=== PATIENT | male | born 1990 | race Caucasian/White ===

== ENCOUNTER 2024-08-07 21:13 | Emergency (ER) | payer BC, SELFPAY ==
[2024-08-07 21:20] VITALS: BP 160/90
[2024-08-07 21:59] LABS: % Eosinophils 2.6 % (0-6); % Immature Granulocytes 0.2 % (0-0.5); % Lymphocytes 40.4 % (20.5-51.1); % Monocytes 9.3 % (1.7-9.3); % Neutrophils 46.5 % (42.2-75.2); Absolute Basophils 0.1 10^3/uL (0-0.2); Absolute Eosinophils 0.2 10^3/uL (0-0.7); Absolute Lymphocytes 2.4 10^3/uL (1.2-3.4); Absolute Monocytes 0.5 10^3/uL (0.1-0.6); Absolute Neutrophils 2.7 10^3/uL (1.4-6.5); Hematocrit 39.9 % (39.0-52.0); Hemoglobin 14.3 g/dL (13.0-18.0); Mean Corp Hgb Conc. 35.8 g/dL (33.0-37.0); Mean Corpuscular Hgb 30.3 pg (27.0-31.0); Mean Corpuscular Volume 84.5 fL (80.0-94.0); Mean Platelet Volume 9.4 fL (7.4-10.4); Nucleated Red Blood Cells % 0 % (-); Platelet Count 216 10^3/uL (130-400); Red Blood Cell Count 4.72 10^6/uL (4.70-6.10); Red Cell Dist. Width 11.9 % (11.5-14.5); White Blood Cell Count 5.8 10^3/uL (4.8-10.8)
[2024-08-07 22:10] VITALS: BMI 29.9
[2024-08-07 22:13] VITALS: BP 138/81
[2024-08-07 22:19] LABS: ALT (SGPT) 31 U/L (0-50); AST (SGOT) 26 U/L (17-59); Albumin 4.3 g/dl (3.5-5.0); Alkaline Phosphatase 43 U/L (38-126); Blood Urea Nitrogen 28 mg/dl (9-20); Calcium 9.7 mg/dl (8.4-10.2); Carbon Dioxide 30 mmol/L (22-30); Chloride 103 mmol/L (98-107); Estimated Creatinine Clearance 102 ml/min; Glucose 117 mg/dl (70-99); Sodium 141 mmol/L (135-145); Total Bilirubin 0.7 mg/dl (0.2-1.3); Total Protein 6.6 g/dl (6.3-8.2); eGFR > 60.00
[2024-08-07 22:22] LABS: Troponin I < 0.012 ng/ml
--- NOTE | 2024-08-07 22:35 | ED.GENMED ---
History of Present Illness
General
Chief Complaint: Chest Pain
Time Seen by Provider: 08/07/24 22:35
History of Present Illness
History of Present Illness:
TIME OF INITIAL ENCOUNTER: 10:35 PM
HPI: While getting kids ready for bed at around 8:15 PM, the patient had sudden onset dizziness. His daughter was sitting on him at the time and then he broke out into a sweat for about 15 minutes. There was some vague left-sided chest. He had no
shortness of breath. He had a general unwell feeling but overall symptoms have spontaneously resolved. His father had heart issues in his 50s.
EXAM:
GENERAL: Well appearing in no distress, athletic build, healthy appearing
HEENT: Moist oral mucosa
CARDIOVASCULAR: No murmurs, normal heart rate, regular rhythm, No chest wall tenderness
PULMONARY: No respiratory distress, breath sounds are clear and equal
ABDOMEN: Soft with no peritoneal signs, no tenderness
NEUROLOGIC: Excellent strength all extremities, no coordination deficits
PSYCHIATRIC: Appropriate mental status, normal insight and judgement
EXTREMITIES: Nontender, no edema, moves all extremities equally
SKIN: No rash, no lesions
NUMBER AND COMPLEXITY OF PROBLEMS ADDRESSED AT THE ENCOUNTER
� Chronic conditions affecting care: Former smoker, is not a diabetic, no high blood pressure, no high cholesterol
� Acute Exacerbation and/or Progression of Chronic Illness: This is an acute problem
� Differential Diagnosis includes: Dehydration, vagal event, anemia, ACS very unlikely, pneumothorax unlikely
AMOUNT AND/OR COMPLEXITY OF DATA TO BE REVIEWED AND ANALYZED
� I performed an independent evaluation of and my interpretation is:
EKG: Sinus 90, normal axis, no acute ST abnormality, no change from EKG from 2018
CT:
X-rays: Chest x-ray by my read shows no acute abnormality.
Laboratory Studies: Troponin less than 0.012, chemistries unremarkable, CBC unremarkable
Other:
� Review of other/old records: I reviewed records, the patient was seen here in 2021 with nausea and vomiting and was seen here in October 26 with palpitations. He was also seen here with a syncopal event in 2017
� Clinical information was obtained by an independent historian: I spoke to the at bedside
� Prescriptions/Medications Considered but not given:
� Further testing considered but not performed:
RISK OF COMPLICATIONS AND/OR MORBIDITY OR MORTALITY OF PATIENT MANAGEMENT
� Social determinants of health affecting care: Lives at home
� Discussion with other providers:
� Escalation of care including admission/observation vs risk of discharge considered: The patient is very well-appearing with an unremarkable initial ED workup.
ANY OTHER UPDATES:
12:40 AM: The patient had a second troponin resulted which was also negative. Very low suspicion for ACS. Recommend close outpatient follow-up with cardiology. The patient overall feels improved on reassessment. question the possibly of an
anxiety attack which I think is possible but does not necessarily explain the earlier dizziness.
Past History
Past History
ED Past Medical History: None
ED Past Surgical History: None
Social History
Tobacco: Non-smoker
Alcohol: Occasional
Living: with family
Employment: Employed (electrical work)
Phy Exam
Physical Exam
Physical Exam:
See HPI
Scores
Heart Score for Chest Pain Patients
STEMI patient?: Not applicable
Course
Orders/Labs/Results
Orders:
Orders
08/07/24 21:15
EKG [Electrocardiogram (*1)] Urgent
Reason for Study: Chest Pain
EKG- Treatment ONCE
08/07/24 21:50
Complete Blood Count/With Diff Urgent
Comprehensive Metabolic Panel Urgent
Troponin I Urgent
08/07/24 22:36
CR Chest - 2 Views Urgent
Comment:
Reason For Exam: cp
08/07/24 23:45
Troponin I Urgent
Abnormal Lab Results
08/07/24
21:50
BUN 28 H mg/dl
(9-20)
Glucose 117 H mg/dl
(70-99)
08/07/24 21:50
08/07/24 21:50
Vital Signs
Initial and Last Documented VS:
Initial Vital Signs
Temp Pulse Resp BP Pulse Ox
36.7 C 83 20 160/90 99
08/07/24 21:20 08/07/24 21:20 08/07/24 21:20 08/07/24 21:20 08/07/24 21:20
Last Documented Vital Signs
Temp Pulse Resp BP Pulse Ox
36.7 C 59 17 116/71 98
08/07/24 21:20 08/08/24 00:30 08/08/24 00:30 08/08/24 00:00 08/07/24 22:15
*Critical Care Note
Total Time (30-74mins, 75-104mins- exclusive of procedures): Not Applicable
ED Attending Note
-
Portions of this chart may have been created with voice recognition software.� Occasional wrong word or��sound alike� substitutions may have occurred due to the inherent limitations of voice recognition software.
Discharge Plan
Departure
Prescriptions:
No Action
No Current Medications
0 mg PO DAILY
ondansetron 4 MG tablet,disintegrating
4 mg PO TIDPRN PRN (Reason: nausea/vomiting) Qty: 8 0RF
Referrals:
NONE,* [Family Provider] -
Interventions
Interventions:
*Risk Screen - Suicide Last Done: 08/07/24 21:21
*General Assessment Last Done: 08/07/24 21:20
*Neglect/Abuse Screening Last Done: 08/07/24 21:21
*ED- Fall Risk Assessment Last Done: 08/07/24 22:10
*ED COVID-19 Vaccine History Last Done: 08/07/24 22:10
ED- Cardiac Assessment Last Done: 08/07/24 22:10
Discharge Date and Time
Print Language: WOLOF
[2024-08-07 23:04] VITALS: BP 136/73
[2024-08-08] VITALS: BP 116/71
[2024-08-08 00:39] LABS: Troponin I < 0.012 ng/ml
== END 2024-08-08 00:55 | disposition home or self-care (01) ==
LOC: EMR 21:13
PROVIDERS: EMERGENCY PHYSICIAN Emergency Medicine
DX: R07.89 Other chest pain (principal); R42 Dizziness and giddiness
CPT/HCPCS: 99285; 71046; 80053; 84484; 85025; 93005